=== PATIENT | male | born 1960 | race Caucasian/White ===

== ENCOUNTER → 2016-09-19 | Outpatient (CLI) | payer BC ==
--- NOTE | 2016-09-19 11:26 | MR ---
EXAMINATION TYPE: MR knee RT wo con DATE OF EXAM: 09/19/2016 COMPARISON: Plain film 09/07/2016 HISTORY: Rt knee pain TECHNIQUE: Multiplanar, multisequence imaging of the right knee is performed without IV contrast. FINDINGS: MEDIAL MENISCUS: Posterior horn of the medial meniscus shows abnormal increased signal which extends to the articular surface. LATERAL MENISCUS: Linear increased signal running through the meniscus does not communicate with the articular surface. CRUCIATE LIGAMENTS: The anterior and posterior cruciate ligaments are intact and unremarkable. COLLATERAL LIGAMENTS: The medial collateral ligament and lateral collateral ligament complex are inta ct and unremarkable. EXTENSOR MECHANISM: The patellar tendon shows some increased signal at its insertion on the proximal tibia, there is susceptibility artifact due to patient's rena at this level. Quadriceps tendon int act. EFFUSION: Small joint effusion, there may be some loose bodies. POPLITEAL CYST: No popliteal/flores cyst. TRICOMPARTMENT SPACES: Some narrowing at the patellofemoral joint is present. There is associated mar ginal spurring especially at the posterior patella and lateral compartments CARTILAGE: Grade IV chondromalacia changes are present at the posterior patella, grade 2 to grade III chondromalacia signal present at the medial femoral condyle. BONE MARROW SIGNAL: Subchondral edema at the posterior patella OTHER: Cluster of grapes cystic focus present at level between the proximal tibia and fibula measuri ng 3 x 2 x 1 cm. Incidental note of varicosities. IMPRESSION: Tear of the posterior horn medial meniscus. Osteoarthritis. Postop changes. Possible ganglion cyst be tween the proximal tibia and fibula. Small loose bodies suspected within a small joint effusion.
== END | disposition home or self-care (01) ==
LOC: RADMRIMAIN 08:33
PROVIDERS: ATTEND Orthopaedic Surgery
DX: S83.241A Other tear of medial meniscus, current injury, right knee, initial encounter (principal); M17.11 Unilateral primary osteoarthritis, right knee; Z98.890 Other specified postprocedural states

== ENCOUNTER → 2016-09-29 | Outpatient (CLI) | payer BC ==
[2016-09-29 11:31] LABS: EKG EKG PERFORMED
[2016-09-29 11:49] LABS: Basophils % (A) 0 %; CH 32.9; CHCM 34.3; Eosinophils # (A) 0.3 k/uL (0-0.7); Eosinophils % (A) 4 %; HCT 43.9 % (39.0-53.0); HGB 15.1 gm/dL (13.0-17.5); Luc # (Auto) 0.22; Luc % (Auto) 3; Lymphocytes # (A) 1.7 k/uL (1.0-4.8); Lymphocytes % (A) 22 %; MCH 33.1 pg (25.0-35.0); MCHC 34.5 g/dL (31.0-37.0); Mean Platelet Volume 6.7; Monocytes # (A) 0.3 k/uL (0-1.0); Monocytes % (A) 4 %; Neutrophils # (A) 5.2 k/uL (1.3-7.7); Neutrophils % (A) 67 %; RBC 4.57 m/uL (4.30-5.90); RDW 13.8 % (11.5-15.5); WBC 7.7 k/uL (3.8-10.6); WBC (Perox) 7.44
[2016-09-29 11:54] LABS: Partial Thromboplastin Time 22.5 sec (22.0-30.0); Prothrombin Time 10.5 sec (9.0-12.0)
[2016-09-29 12:13] LABS: Anion Gap 9 mmol/L; Carbon Dioxide 25 mmol/L (22-30); Chloride 106 mmol/L (98-107); Potassium 4.4 mmol/L (3.5-5.1); Sodium 140 mmol/L (137-145)
== END | disposition home or self-care (01) ==
LOC: LABPAT 11:22
PROVIDERS: ATTEND Orthopaedic Surgery
DX: Z01.810 Encounter for preprocedural cardiovascular examination (principal); M23.91 Unspecified internal derangement of right knee
CPT/HCPCS: 36415; 80051; 85025; 85610; 85730; 93005

== ENCOUNTER 2016-10-07 06:30 | Day surgery (SDC) | payer BC ==
[2016-09-29 13:04] VITALS: BMI 36.9
[~2016-10-07 06:30] MED LIST: DEXAMETHASONE SOD PHOSPHATE 10 MG/ML 1 ML VIAL IV ONE; LACTATED RINGERS 1,000 ML IV SCH; MIDAZOLAM 2 MG/2 ML VIAL IV PRN; ONDANSETRON 4 MG/2 ML VIAL IVP ONE; SCOPOLAMINE 1.5MG/72HR PATCH TRANSDERM ONE; ceFAZolin 3 GM in SODIUM CHLORIDE 0.9% 100 ML IVPB ONE
--- NOTE | 2016-10-07 06:37 | HP ---
HISTORY AND PHYSICAL CHIEF COMPLAINT: Right knee pain. HISTORY OF PRESENT ILLNESS: The patient is a 55-year-old retired gentleman who presents with right knee pain and giving way ever since an injury on July 23, 2016. He was trying to move a large flower pot with his right leg when he felt a pop in his knee. He has had medial pain, swelling, and giving way since. He has tried medications along with an injection with only partial temporary relief. He notes the pain limits his normal function in activities. PAST MEDICAL HISTORY: Significant for hypertension. PAST SURGICAL HISTORY: Significant for left knee arthroscopy in addition to previous right knee ACL reconstruction 30 years ago. CURRENT MEDICATIONS: Current medications include antihypertensive and ibuprofen. ALLERGIES: He denies drug allergies. FAMILY HISTORY: Significant for cancer. SOCIAL HISTORY: Negative for current tobacco or alcohol use. REVIEW OF SYSTEMS: Sixteen point review of systems otherwise reviewed and is noncontributory. PHYSICAL EXAMINATION: On examination, the patient is approximately 6 foot tall, 265 pounds of endomorphic habitus. HEENT exam is nonfocal. Neck is supple. He has painless passive motion of his right hip. Straight leg raise is negative. Active motion right knee -10 to 115 degrees of flexion. He is tender about the medial joint line. Collaterals are stable, Suly's negative, Srini's elicits medial pain. His distal neurovascular exam appears intact in the right lower extremity. X-RAYS: X-rays of the right knee obtained in the office show moderate tricompartmental osteoarthrosis. Previous MRI report right knee shows evidence of a posterior medial meniscal tear in addition to degenerative changes involving the medial and patellofemoral compartments. IMPRESSION: 1. Right knee internal derangement with symptomatic medial meniscal tear. 2. Right knee moderate tricompartmental osteoarthrosis. 3. Increased body mass index. RECOMMENDATIONS: I talked to the patient regarding his treatment options. At this point, he has had pain and mechanical symptoms despite conservative measures. He opts to proceed with surgery. We will plan to proceed with arthroscopic evaluation with probable partial medial meniscectomy. Likely we will perform that as an outpatient procedure. Risks and benefits were discussed at length in layman's terms. MMODL / IJN: [id number] /
[2016-10-07] MEDS ORDERED: LIDOCAINE 1% 20 ML VIAL (10MG/ML) FOR IV START INTRADERMA ONE (07:10)
[2016-10-07] MEDS ORDERED: MIDAZOLAM 2 MG/2 ML VIAL ONE (07:53)
[2016-10-07] MEDS ORDERED: PROPOFOL 10 MG/ML 20 ML VIAL IV ONE (07:53)
[2016-10-07] MEDS ORDERED: fentaNYL (PF) 50 MCG/ML 2 ML AMP ONE (07:53)
[2016-10-07] MEDS ORDERED: ePHEDrine SULFATE/0.9% NACL/PF 50 MG/5 ML SYRINGE IV ONE (07:53)
[2016-10-07] MEDS ORDERED: SUCCINYLCHOLINE CHLORIDE VIAL 200 MG/10 ML VIAL IV ONE (07:53)
[2016-10-07] MEDS ORDERED: LIDOCAINE 1% INJ 10MG/ML (20 ML MDV) ONE (07:53)
[2016-10-07] MEDS ORDERED: EPINEPHrine (PF) 1 ML in SODIUM CHLORIDE 0.9% IRRIGATIO 3,000 ML IRRIGATION ONE ×4 (08:11)
--- NOTE | 2016-10-07 08:42 | P.OP ---
Date of Procedure: 10/07/16 Preoperative Diagnosis: Right knee internal derangement Postoperative Diagnosis: Right knee posterior medial meniscal tear/grade 2/3 chondral injury posterior lateral medial femoral condyle/grade 2 chondral injury central lateral tibial plateau/reactive synovitis Procedure(s) Performed: Right knee arthroscopic partial medial meniscectomy/medial femoral chondrectomy/ lateral tibial chondrectomy/partial synovectomy of the medial and lateral compartments Implants: Anesthesia: GETA Surgeon: Law Enriquez Estimated Blood Loss (ml): 10 Pathology: none sent Condition: stable Disposition: PACU Indications for Procedure: The patient's a 55-year-old male who presents with progressive right knee pain and mechanical symptoms after a previous twisting injury. He did try conservative measures with persistence of his symptoms. A discussion of the risks and benefits of operative intervention versus continued conservative measures was made with the patient. He opted to proceed with surgery. Operative risks to include infection, neurovascular injury, development of blood clots, possible incomplete resolution of symptoms, possible worsening symptoms and need for subsequent procedures was discussed. Informed consent was obtained. Operative Findings: As below Description of Procedure: The patient was brought to the operating room, and after induction of general anesthesia examined the right knee. Collaterals were stable, Suly was negative, posterior drawer was negative. The right lower extremity was prepped and draped in a normal fashion. A superior lateral portal was made through a 3 mm skin incision superior and lateral to the patella. This was used for outflow. A lateral portal was made through a 5 mm vertical skin incision lateral to the patella tendon above the joint line. Diagnostic arthroscopy was performed. A medial portal was made through a similar incision medial to the patella tendon above the joint line. Diagnostic arthroscopy was performed. On inspection medial compartment, he is noted of complex tear involving the posterior horn the medial meniscus in the white-red junction. This was not amenable to repair. This debrided back to stable base with straight baskets and motorized shaver. A grade 2/3 chondral injury was noted involving the posterior/lateral portion of the medial femoral condyle. This measured approximately 1 x 2 cm with a large chondral flap. This was debrided back to stable base the motorized shaver. Reactive synovitis from anterior medial compartment was debrided with a motorized shaver. On inspection of the notch, the anterior cruciate ligament appeared to be intact. On inspection of the lateral compartment, a grade 2 chondral injury was noted involving the central portion of the lateral tibial plateau with a loose chondral flap. This debrided back to stable base a motorized shaver. The lateral meniscus was stable and intact. Reactive synovitis involving the anterolateral compartment was debrided with a motorized shaver. On inspection patellofemoral articulation , there is grade 3-4 chondral changes diffusely. No loose chondral fragments were noted. The gutters were clear debris. The knee was then thoroughly irrigated. The portals were closed with Steri-Strips. A sterile dressing was applied in addition to a compression stocking. The patient was awoken from general anesthesia and transferred to recovery room in good condition. Blood loss was estimated at 10 mL. No complications were incurred.
[2016-10-07 08:56] VITALS: TEMP 97.4
[2016-10-07 09:02] VITALS: RESP 16
[2016-10-07] MEDS: HYDROmorphone 1 MG/ML 1 ML SYRINGE IVP PRN ×2 (09:06→09:12)
[2016-10-07] MEDS ORDERED: HYDROcodone/APAP 7.5-325MG 1 EACH TAB PO ONE (09:52)
[2016-10-07 10:07] VITALS: BP 115/70; PULSE 80
== END 2016-10-07 10:24 | disposition home or self-care (01) ==
LOC: OR 06:30
PROVIDERS: ATTEND Orthopaedic Surgery
DX: S83.241A Other tear of medial meniscus, current injury, right knee, initial encounter (principal); M23.91 Unspecified internal derangement of right knee; X58.XXXA Exposure to other specified factors, initial encounter; Y93.H2 Activity, gardening and landscaping; M17.11 Unilateral primary osteoarthritis, right knee; I10 Essential (primary) hypertension; M06.9 Rheumatoid arthritis, unspecified; Z79.1 Long term (current) use of non-steroidal anti-inflammatories (NSAID); Z79.899 Other long term (current) drug therapy; M65.861 Other synovitis and tenosynovitis, right lower leg; Z91.012 Allergy to eggs; Z91.010 Allergy to peanuts; Z91.013 Allergy to seafood; Z88.2 Allergy status to sulfonamides; Z91.09 Other allergy status, other than to drugs and biological substances
CPT/HCPCS: 29881; J2250; J0330; J1100; J0690; J2405; J0171; J2001; J3010; J1170; J2704

== ENCOUNTER → 2019-11-14 | Outpatient (CLI) | payer BC ==
--- NOTE | 2019-11-15 06:32 | US ---
EXAMINATION TYPE: US kidneys/renal and bladder DATE OF EXAM: 11/14/2019 COMPARISON: CT 2008 CLINICAL HISTORY: N41.0 Acute prostatitis. No renal/bladder history issues per patient. EXAM MEASUREMENTS: Right Kidney: 11.9 x 6.2 x 5.1 cm Left Kidney: 12.7 x 6.1 x 6.2 cm Post Void Residual Volume: 108.2 mL Right Kidney: No hydronephrosis or masses seen; small,thin extracapsular fluid area mid pole is sonog raphic "sweat sign"and is suggestive of renal failure. Left Kidney: No hydronephrosis or masses seen Bladder: abnormally thickened wall is noted = 6.7mm. Bilateral Jets seen: yes Normal Post Void Residual: no, as volume is greater than 50.0ml. Bladder is not greatly distended with wall thickening slightly abnormal up to 7 mm. No suspicious int raluminal mass. Kidneys are symmetric and normal in size. When scanning right kidney adjacent liver i s heterogeneously hyperechoic suggesting diffuse fatty infiltration. Cortical medullary differentiati on maintained. No concerning masses on images saved. No hydronephrosis. IMPRESSION: Abnormal bladder wall thickening even for contracted bladder should be correlated clinica lly. Acute cystitis is in differential along with chronic outlet obstruction related to enlarged pros ventura gland. Other etiologies not excluded.
== END | disposition home or self-care (01) ==
LOC: RADUSWWP 16:14
PROVIDERS: ATTEND Urology
DX: N32.89 Other specified disorders of bladder (principal); N40.0 Benign prostatic hyperplasia without lower urinary tract symptoms
CPT/HCPCS: 76770

== ENCOUNTER → 2021-04-27 | Outpatient (CLI) | payer BC ==
--- NOTE | 2021-04-27 11:55 | US ---
EXAMINATION TYPE: US scrotum with doppler. Grayscale and color Doppler Duplex imaging performed of judith molina scrotum. DATE OF EXAM: 04/27/2021 COMPARISON: NONE CLINICAL HISTORY: N50.819 TESTICULAR PAIN, UNSPECIFIED. Right testicular pain and swelling x couple d ays EXAM MEASUREMENTS: TESTICLES: Right Testicle: 4.2 x 3.2 x 3.6 cm Left Testicle: 4.3 x 2.4 x 3.1 cm EPIDIDYMIS HEAD: Right Epididymis: 1.5 cm Left Epididymis: 1.5 cm Doppler performed to assess for testicular vascularity; good bilateral color flow and waveforms are s een. Presence of hydroceles: right - 4.8cm complex, left - 2.6cm Presence of varicoceles: no Small to moderate size right greater than left scrotal fluid collection or hydroceles which is not co mpletely anechoic on the right. Satisfactory blood flow to both testicles identified. Towards end of study image saved appears to show asymmetric slight increased flow to the right testicle. Technologis t does not state if this was also identified during real-time scanning. IMPRESSION: Asymmetric increased blood flow flow to right testicle with nonsimple scrotal fluid colle ction raises concern for right-sided orchitis/epididymitis.
== END | disposition home or self-care (01) ==
LOC: RADUSWWP 11:16
PROVIDERS: ATTEND Internal Medicine Geriatric Medicine
DX: N45.1 Epididymitis (principal); N45.2 Orchitis
CPT/HCPCS: 76870; 93975

== ENCOUNTER 2022-07-29 08:42 | Emergency (ER) | payer BC ==
[2022-07-29 08:50] VITALS: RESP 16
[2022-07-29] MEDS ORDERED: HYDROmorphone 0.5 MG/0.5 ML SYRINGE IM STA (09:20)
--- NOTE | 2022-07-29 09:20 | ED ---
General Adult HPI - General Chief complaint: Urogenital Stated complaint: POST OP, PAIN Time Seen by Provider: 07/29/22 08:43 Source: patient Mode of arrival: ambulatory Limitations: no limitations - History of Present Illness Initial comments: Dictation was produced using [employer] dictation software. please excuse any grammatical, word or spelling errors. Chief Complaint: 61-year-old male with penile pain status post cystoscopy History of Present Illness: Patient is 61-year-old male presents emergency Department with penile pain. States that he had a cystoscopy yesterday at Dr. Cooper's office. Dr. Cooper his urologist Diagnosed patient with an fistula between bowel and bladder. Patient has been struggling with frequent UTIs over the last 2 years. Patient currently on antibiotics. States that the procedure he has been having significant pain. We'll go this morning his penis was severely swollen. He called the answering service is told to the ER immediately. Patient states that the swelling has gone down immensely over the last couple hours. Using ice packs. Patient has history of circumcision The ROS documented in this emergency department record has been reviewed and confirmed by me. Those systems with pertinent positive or negative responses have been documented in the HPI. All other systems are other negative and/or noncontributory. - Related Data Home Medications Medication Instructions Recorded Confirmed ramipriL [Altace] 10 mg PO BID 06/13/13 07/18/20 Ixekizumab [Taltz Autoinjector] 80 mg SQ QMONTHLY 07/09/20 07/18/20 Previous Rx's Medication Instructions Recorded Cefpodoxime Proxetil [Vantin] 200 mg PO Q12HR 10 Days #20 tab 07/29/22 oxyCODONE HCL/ACETAMINOPHEN 1 tab PO Q6HR PRN 3 Days #12 tab 07/29/22 [Percocet 5-325 mg] Allergies Allergy/AdvReac Type Severity Reaction Status Date / Time egg Allergy Dyspnea Verified 07/29/22 08:45 iodine Allergy Dyspnea Verified 07/29/22 08:45 Milk Containing Products Allergy Dyspnea Verified 07/29/22 08:45 peanut Allergy Dyspnea Verified 07/29/22 08:45 shellfish derived Allergy Dyspnea Verified 07/29/22 08:45 Sulfa (Sulfonamide Allergy Unknown Verified 07/29/22 08:45 Antibiotics) Review of Systems ROS Statement: Those systems with pertinent positive or pertinent negative responses have been documented in the HPI. ROS Other: All systems not noted in ROS Statement are negative. Past Medical History Past Medical History: Hypertension, Musculoskeletal Disorder Additional Past Medical History / Comment(s): arthritis, warthins tumors parotid gland. PROSTATITIS. History of Any Multi-Drug Resistant Organisms: None Reported Past Surgical History: Bowel Resection, Hernia Repair, Orthopedic Surgery Additional Past Surgical History / Comment(s): arthroscopy evan knees, parotide ctomy, bowel resection, multiple cystoscopies Past Anesthesia/Blood Transfusion Reactions: No Reported Reaction Past Psychological History: No Psychological Hx Reported Smoking Status: Never smoker Past Alcohol Use History: None Reported Past Drug Use History: None Reported General Exam - General Exam Comments Initial Comments: PHYSICAL EXAM: General Impression: Alert and oriented x3, not in acute distress HEENT: Normocephalic atraumatic, extra-ocular movements intact, pupils equal and reactive to light bilaterally, mucous membranes moist. Cardiovascular: Heart regular rate and rhythm Chest: Able to complete full sentences, no retractions, no tachypnea Abdomen: abdomen soft, non-tender, non-distended, no organomegaly Musculoskeletal: Pulses present and equal in all extremities, no peripheral edema Motor: no focal deficits noted Neurological: CN II-XII grossly intact, no focal motor or sensory deficits noted Skin: Intact with no visualized rashes Psych: Normal affect and mood : Mild swelling to the inferior portion of the foreskin, no evidence of paraphimosis, glans penis is unremarkable Limitations: no limitations Course Vital Signs 07/29/22 07/29/22 07/29/22 08:45 09:26 10:24 Temperature 98 F 97.9 F 97.9 F Pulse Rate 97 70 69 Respiratory 16 16 16 Rate Blood Pressure 158/91 128/94 134/83 O2 Sat by Pulse 97 95 99 Oximetry - Reevaluation(s) Reevaluation #1: 07/29/22 09:[address] Vincent Cooper who is patient's urologist at performed cystoscopy yesterday. He denies any further recommendation. He is aware that patient shared emergency department experiencing complications status post cystoscopy. Medical Decision Making - Medical Decision Making Was pt. sent in by a medical professional or institution (, PA, BOARD TURNER, urgent care, hospital, or detention...) When possible be specific @ -No Did you speak to anyone other than the patient for history (EMS, parent, family, police, friend...)? What history was obtained from this source @ - at the bedside states the patient is UTI Did you review nursing and triage notes (agree or disagree)? Why? @ -I reviewed and agree with nursing and triage notes Were old charts reviewed (outside hosp., previous admission, EMS record, old EKG, old radiological studies, urgent care reports/EKG's, detention records)? Report findings @ -No old charts were reviewed Differential Diagnosis (chest pain, altered mental status, abdominal pain women, abdominal pain men, vaginal bleeding, musculoskeletal, weakness, fever, dyspnea, syncope, headache, dizziness, GI bleed, back pain, seizure, CVA, palpatations, mental health)? @ -Differential Abdominal Pain Men: Appendicitis, cholecystitis, diverticulosis, ischemic bowel, pancreatitis, hepatitis, UTI, gastroenteritis, AAA, incarcerated hernia, bowel obstruction, constipation, inflammatory bowel, hepatitis, peptic ulcer disease, splenic infarction, perforated viscus, testicular torsion, this is not meant to be an all-inclusive list EKG interpreted by me (3pts min.). @ -None done X-rays interpreted by me (1pt min.). @ -None done CT interpreted by me (1pt min.). @ -None done U/S interpreted by me (1pt. min.). @ -None done What testing was considered but not performed or refused? (CT, X-rays, U/S, labs)? Why? @ -None What meds were considered but not given or refused? Why? @ -None Did you discuss the management of the patient with other professionals (professionals i.e. , PA, BOARD TURNER, lab, RT, psych nurse, social media marketing specialist, instructional materials director, teacher, consumer safety officer, disease case manager)? Give summary @ -discussed with Dr. Vincent Cooper as described above Was smoking cessation discussed for >3mins.? @ -No Was critical care preformed (if so, how long)? @ -No Were there social determinants of health that impacted care today? How? (Homelessness, low income, unemployed, alcoholism, drug addiction, transportation, low edu. Level, literacy, decrease access to med. care, long term, rehab)? @ -No Was there de-escalation of care discussed even if they declined (Discuss DNR or withdrawal of care, Hospice)? DNR status @ -No What co-morbidities impacted this encounter? (DM, HTN, Smoking, COPD, CAD, Cancer, CVA, ARF, Chemo, Hep., AIDS, mental health diagnosis, sleep apnea, morbid obesity)? @ -None Was patient admitted / discharged? Hospital course, mention meds given and route, prescriptions, significant lab abnormalities, going to OR and other pertinent info. @ -61-year-old male presents emergency department with urinary symptoms. Cystoscopy done yesterday. Vital signs upon arrival are within acceptable limits. Does not have any constitutional symptoms. He was just diagnosed with bowel bladder fistula. Urinalysis shows findings consistent with urinary tract infection. Most recent microbiology results reviewed from 2020. Patient given ceftriaxone. Given prescription for cefpodoxime and analgesics. Rest of Undiagnosed new problem with uncertain prognosis? @ -No Drug Therapy requiring intensive monitoring for toxicity (Heparin, Nitro, Insulin, Cardizem)? @ -No Were any procedures done? @ -No Diagnosis/symptom? Acute, or Chronic, or Acute on Chronic? Uncomplicated (without systemic symptoms) or Complicated (systemic symptoms)? @ -UTI Side effects of treatment? @ -No Exacerbation, Progression, or Severe Exacerbation? @ -No Poses a threat to life or bodily function? How? (Chest pain, [place], [place], pneumonia, PE, COPD, DKA, ARF, appy, cholecystitis, CVA, Diverticulitis, Homicidal, Suicidal, threat to staff... and all critical care pts) @ -yes - Lab Data Lab Results 07/29/22 Range/Units 09:17 Urine Color Dark Brown Urine Appearance Cloudy (Clear) Urine pH 6.0 (5.0-8.0) Ur Specific Nahma 1.020 (1.001-1.035) Urine Protein 2+ H (Negative) Urine Glucose (UA) Negative (Negative) Urine Ketones Trace H (Negative) Urine Blood Large H (Negative) Urine Nitrite Positive (Negative) Urine Bilirubin Negative (Negative) Urine Urobilinogen <2.0 (<2.0) mg/dL Ur Leukocyte Esterase Large H (Negative) Urine RBC >182 H (0-5) /hpf Urine WBC >182 H (0-5) /hpf Urine WBC Clumps Many H (None) /hpf Urine Mucus Rare H (None) /hpf Urine Yeast (Budding) Few H (None) /hpf Disposition Clinical Impression: UTI (urinary tract infection) Disposition: HOME SELF-CARE Condition: Fair Instructions (If sedation given, give patient instructions): Urinary Tract Infection in Men (ED) Prescriptions: oxyCODONE HCL/ACETAMINOPHEN [Percocet 5-325 mg] 1 tab PO Q6HR PRN 3 Days #12 tab PRN Reason: Pain Cefpodoxime Proxetil [Vantin] 200 mg PO Q12HR 10 Days #20 tab Is patient prescribed a controlled substance at d/c from ED?: Yes If prescribed controlled substance>3 days was MAPS reviewed?: Prescribed <3 Days Referrals: Denisse West MD [Primary Care Provider] - 1-2 days Time of Disposition: 11:48
[2022-07-29 09:41] LABS: Appearance,Urine Cloudy (Clear); Bilirubin,Urine Negative (Negative); Blood,Urine Large (Negative); Budding Yeast,Urine Few /hpf; Color,Urine Dark Brown; Glucose,Urine (UA) Negative (Negative); Ketones,Urine Trace (Negative); Leukocyte Esterase,Urine Large (Negative); Mucus,Urine Rare /hpf; Nitrite,Urine Positive (Negative); Protein,Urine 2+ (Negative); RBC,Urine >182 /hpf (0-5); Urobilinogen,Urine <2.0 mg/dL (<2.0); WBC,Urine >182 /hpf (0-5)
[2022-07-29] MEDS ORDERED: cefTRIAXone IN SWFI 1,000 MG/10 ML SYRINGE IVP STA (10:40)
[2022-07-29 11:57] VITALS: BP 138/80; PULSE 72; TEMP 97.6
== END 2022-07-29 11:57 | disposition home or self-care (01) ==
LOC: EC 08:42
DX: N39.0 Urinary tract infection, site not specified (principal); I10 Essential (primary) hypertension; Z88.1 Allergy status to other antibiotic agents; Z88.2 Allergy status to sulfonamides; Z91.012 Allergy to eggs; Z91.013 Allergy to seafood; Z91.011 Allergy to milk products
CPT/HCPCS: 81001; 87086; 99283; 96374; 96372; J0696; J1170

== ENCOUNTER → 2024-02-20 | Outpatient (CLI) | payer BC ==
--- NOTE | 2024-02-20 09:01 | XR ---
EXAMINATION TYPE: XR chest 2V DATE OF EXAM: 02/20/2024 8:57 AM COMPARISON: None. CLINICAL INDICATION: Male, 63 years old with history of Z01.818 CH XR 2 V PRE SURG, TECHNIQUE: XR chest 2V view(s) obtained. FINDINGS: The heart size is normal. The pulmonary vasculature is normal. The lungs are clear. IMPRESSION: 1. No acute pulmonary process. [facility], , 02/20/2024 8:59 AM
[2024-02-20 15:31] LABS: HCT 38.4 % (39.6-50.0); HGB 12.5 g/dL (13.0-17.0); MCH 29.8 pg (27.0-32.0); MCHC 32.6 g/dL (32.0-37.0); MCV 91.6 FL (80.0-97.0); Mean Platelet Volume 9.6 FL (9.5-12.2); NRBC Per 100 WBC 0 X 10*3/uL (0.00-0.01); Platelet Count 154 X 10*3/uL (140-440); RBC 4.19 X 10*6/uL (4.40-5.60); RDW 13.2 % (11.5-14.5); WBC 6.04 X 10*3/uL (4.50-10.00)
[2024-02-20 15:32] LABS: Basophils # (A) 0.03 X 10*3/uL (0.00-0.10); Basophils % (A) 0.5 %; Eosinophils # (A) 0.24 X 10*3/uL (0.04-0.35); Lymphocytes # (A) 1.09 X 10*3/uL (0.90-5.00); Monocytes # (A) 0.42 X 10*3/uL (0.20-1.00); Neutrophils # (A) 4.24 X 10*3/uL (1.80-7.70); Neutrophils % (A) 70.2 %
[2024-02-20 18:55] LABS: Appearance,Urine Clear (Clear); Bilirubin,Urine Negative (Negative); Blood,Urine Negative (Negative); Color,Urine Yellow (Yellow); Ketones,Urine Negative (Negative); Nitrite,Urine Negative (Negative); PH, Urine 5.5; Specific Gravity,Urine 1.027 (1.001-1.030); Urobilinogen,Urine 0.2 E.U./DL
[2024-02-20 19:12] LABS: Bacteria,Urine None Seen (None Seen)
[2024-02-20 21:40] LABS: NT-Pro-B-Type Natriuretic Pept 276 pg/mL (0-125)
[2024-02-20 21:48] LABS: ALT 21 U/L (10-49); AST 19 U/L (14-35); Albumin 4.2 g/dL (3.8-4.9); Alkaline Phosphatase 50 U/L (41-126); BUN/Creat Ratio 18.82 Ratio (12.00-20.00); Blood Urea Nitrogen 20.7 mg/dL (9.0-27.0); Calcium 9.1 mg/dL (8.7-10.3); Carbon Dioxide 22.8 mmol/L (21.6-31.8); Chloride 106 mmol/L (96-109); Chol/HDL Ratio 3.23 Ratio; Globulin 2.8 g/dL (1.6-3.3); Glucose 195 mg/dL (70-110); LDL Cholesterol,Calculated 68.8 mg/dL (0.0-131.0); Potassium 4.3 mmol/L (3.5-5.5); Sodium 141 mmol/L (135-145); Total Bilirubin 0.3 mg/dL (0.3-1.2)
== END | disposition home or self-care (01) ==
LOC: LABPAT 08:12
PROVIDERS: ATTEND Family Medicine
DX: Z01.818 Encounter for other preprocedural examination (principal); E11.65 Type 2 diabetes mellitus with hyperglycemia; R80.9 Proteinuria, unspecified; I10 Essential (primary) hypertension; M06.9 Rheumatoid arthritis, unspecified; M16.2 Bilateral osteoarthritis resulting from hip dysplasia
CPT/HCPCS: 71046; 80053; 80061; 81001; 82043; 82570; 83036; 83880; 84443; 84550; 85025; 87070; 87086

== ENCOUNTER → 2024-03-02 | Outpatient (CLI) | payer BC ==
[2024-03-02 13:52] LABS: Prothrombin Time 11.4 sec (9.9-11.9)
== END | disposition home or self-care (01) ==
LOC: LABWHC1 07:56
PROVIDERS: ATTEND Orthopaedic Surgery
DX: Z01.812 Encounter for preprocedural laboratory examination (principal); M16.12 Unilateral primary osteoarthritis, left hip
CPT/HCPCS: 36415; 85610; 86850; 86900; 86901

== ENCOUNTER 2024-03-05 05:54 | Day surgery (SDC) | payer BC ==
--- NOTE | 2024-03-04 08:06 | P.HPOR ---
History of Present Illness H&P Date: 03/04/24 Chief Complaint: Left hip pain The patient is a 63-year-old male who presents with progressive left hip pain for the past year worsening over the past 3 months. He notes anterior groin and thigh pain with weightbearing activities. He is having night symptoms. He notes he has been limping. He has tried medications without much relief. Review of Systems Per HPI Past Medical History Past Medical History: Diabetes Mellitus, Hyperlipidemia, Hypertension, Musculoskeletal Disorder, Skin Disorder Additional Past Medical History / Comment(s): psoriatic arthritis, warthins tumors parotid gland, psoriasis, past hx. sepsis due to fistula 2022 History of Any Multi-Drug Resistant Organisms: None Reported Past Surgical History: Bowel Resection, Hernia Repair, Orthopedic Surgery Additional Past Surgical History / Comment(s): arthroscopy evan knees, parotidectomy, bowel resection due to obstruction, multiple cystoscopies, surgery to repair fistula from prostate to bladder 2022 Past Anesthesia/Blood Transfusion Reactions: Postoperative Nausea & Vomiting (PONV) Additional Past Anesthesia/Blood Transfusion Reaction / Comment(s): no hx. of transfusion reaction Smoking Status: Never smoker - Past Family History Mother Family Medical History: No Reported History Medications and Allergies Home Medications Medication Instructions Recorded Confirmed Type Cholecalciferol [Vitamin D3 (25 25 mcg PO DAILY 03/01/24 03/01/24 History Mcg = 1000 Iu)] Finasteride [Proscar] 5 mg PO DAILY 03/01/24 03/01/24 History HYDROcodone/APAP 5-325MG [[place] 1 tab PO Q6HR PRN 03/01/24 03/01/24 History 5-325] Metoprolol Tartrate [Lopressor] 100 mg PO BID 03/01/24 03/01/24 History Rosuvastatin Calcium [Crestor] 5 mg PO DAILY 03/01/24 03/01/24 History Terazosin HCl [Hytrin] 10 mg PO HS 03/01/24 03/01/24 History Tofacitinib Citrate [Xeljanz Xr] 11 mg PO DAILY 03/01/24 03/01/24 History Vitamin B-Folic Acid 1 tab PO DAILY 03/01/24 History lisinopriL [Zestril] 20 mg PO BID 03/01/24 03/01/24 History metFORMIN HCL [Glucophage] 850 mg PO BID 03/01/24 03/01/24 History Allergies Allergy/AdvReac Type Severity Reaction Status Date / Time egg Allergy Dyspnea Verified 03/01/24 11:17 Milk Containing Products Allergy Dyspnea Verified 03/01/24 11:17 (Dairy) [Milk Containing Products] peanut Allergy Dyspnea Verified 03/01/24 11:17 shellfish derived Allergy Dyspnea Verified 03/01/24 11:17 Sulfa (Sulfonamide Allergy Unknown Verified 03/01/24 11:17 Antibiotics) Physical Examination - Hip left Gait: antalgic Tenderness with palpation: anterior Pain with motion: internal rotation and hip flexion ROM: flexion: 60 degrees ROM: internal rotation: 0 degrees ROM: external rotation: 50 degrees Crepitus with motion: Yes Strength: extension: 5/5 Strength: flexion: 5/5 Strength: abduction: 5/5 Tests: impingement tests: positive Results The patient is a well-developed well-nourished male approximately 6 foot tall, 260 pounds of endomorphic habitus. HEENT exam is nonfocal, neck is supple. He has painful passive motion of the left hip. Clinically he has shortening of the left lower extremity compared to the right. He has an antalgic gait pattern. His distal neurovascular exam appears intact in the left lower extremity. - Diagnostic results Hip x-ray: image reviewed (X-rays of the left hip obtained the office show severe left hip osteoarthrosis with [id number] changes and subchondral sclerosis.) Assessment and Plan Assessment: Left hip severe osteoarthrosis Plan: I talked to the patient at length regarding his condition along with treatment options. At this point he is quite symptomatic having pain and mechanical symptoms related to his left hip osteoarthrosis despite conservative measures. After a thorough discussion he opts to proceed with surgery. We will plan to proceed with a left total hip arthroplasty utilizing an anterior approach. Risks and benefits were discussed at length in layman's terms. We will institute DVT prophylaxis postoperatively.
[~2024-03-05 05:54] MED LIST changes: -DEXAMETHASONE SOD PHOSPHATE 10 MG/ML 1 ML VIAL IV ONE; -LACTATED RINGERS 1,000 ML IV SCH; -MIDAZOLAM 2 MG/2 ML VIAL IV PRN; -ONDANSETRON 4 MG/2 ML VIAL IVP ONE; -SCOPOLAMINE 1.5MG/72HR PATCH TRANSDERM ONE; +TRANEXAMIC 1,000 MG/100ML-NACL 1,000 MG in SALINE 1 100ML.BAG IVPB PRN; -ceFAZolin 3 GM in SODIUM CHLORIDE 0.9% 100 ML IVPB ONE
[2024-03-05] MEDS: IV FLUID CONTINUATION 1,000 ML IV ONE (06:45)
[2024-03-05 06:48] LABS: Glucose,Whole Blood 159 mg/dL (70-110)
[2024-03-05] MEDS: MELOXICAM 7.5 MG TAB PO PRN (06:49)
[2024-03-05] MEDS: ACETAMINOPHEN TAB 500 MG TAB PO PRN (06:49)
[2024-03-05] MEDS: LACTATED RINGERS 1,000 ML IV SCH (06:49)
[2024-03-05] MEDS: DEXAMETHASONE SOD PHOSPHATE 4 MG/ML 1 ML VIAL IV ONE (06:50)
[2024-03-05] MEDS: ONDANSETRON 4 MG/2 ML VIAL IVP ONE (06:50)
[2024-03-05] MEDS: MIDAZOLAM 2 MG/2 ML VIAL IVP ONE (07:13)
[2024-03-05] MEDS ORDERED: MIDAZOLAM 2 MG/2 ML VIAL ONE (07:29)
[2024-03-05] MEDS ORDERED: PHENYLEPHRINE 10 MG/ML VIAL ONE (07:29)
[2024-03-05] MEDS ORDERED: PROPOFOL 10 MG/ML 20 ML VIAL IV ONE (07:29)
[2024-03-05] MEDS ORDERED: ePHEDrine 50 MG/ML 1 ML VIAL ONE (07:29)
[2024-03-05] MEDS ORDERED: DEXAMETHASONE SOD PHOSPHATE 4 MG/ML 1 ML VIAL ONE (07:29)
[2024-03-05] MEDS ORDERED: LIDOCAINE 1% INJ 10MG/ML (20 ML MDV) ONE (07:29)
[2024-03-05] MEDS ORDERED: KETAMINE HCL IN 0.9 % NACL 50 MG/5 ML SYRINGE ONE (07:29)
[2024-03-05] MEDS ORDERED: ALBUMIN HUMAN 5% (25gm) 500 ML VIAL IVPB ONE (07:29)
[2024-03-05] MEDS ORDERED: TRANEXAMIC 1,000 MG/100ML-NACL PREMIX BAG ONE (07:29)
[2024-03-05] MEDS ORDERED: ROPIVACAINE 5 MG/ML 30 ML VIAL ONE (07:29)
[2024-03-05] MEDS: ceFAZolin 1,000 MG in SODIUM CHLORIDE 0.9% 1,000 ML IRRIGATION ONE (08:11)
[2024-03-05] MEDS: LACTATED RINGERS 1,000 ML IV ONE (09:12)
[2024-03-05] MEDS ORDERED: hydrOXYzine pamoate 25 MG CAP PO PRN (09:21)
[2024-03-05] MEDS ORDERED: HYDROmorphone 0.5 MG/0.5 ML SYRINGE IVP PRN (09:21)
[2024-03-05] MEDS ORDERED: MAGNESIUM HYDROXIDE 2,400 MG/30 ML CUP PO PRN (09:21)
[2024-03-05] MEDS ORDERED: HYDROcodone/APAP 5-325MG 1 EACH TAB PO PRN (09:21)
[2024-03-05] MEDS ORDERED: NALOXONE 0.4 MG/ML 1 ML VIAL IV PRN (09:21)
--- NOTE | 2024-03-05 09:25 | FL ---
EXAMINATION TYPE: FL guidance operating room, XR Hip Limited LT DATE OF EXAM: 03/05/2024 FLUOROSCOPY LT anterior hip with Mina 27.5 sec fluoro time 1.6721 DAP 4 images saved [facility], , 03/05/2024 9:23 AM
--- NOTE | 2024-03-05 09:37 | P.OP ---
Date of Procedure: 03/05/24 Preoperative Diagnosis: Left hip severe osteoarthrosis Postoperative Diagnosis: Same Procedure(s) Performed: Left total hip arthroplastypress-fitanterior approach Implants: DePuy [place] size 12/125 degree standard collared press-fit femoral stem, 36+1.5 cobalt chrome femoral head, 60 mm [place] acetabular shell with neutral polyethylene liner. Anesthesia: spinal Surgeon: Lwa Enriquez Yard Clerk #1: Benjamin May Estimated Blood Loss (ml): 700 Pathology: none sent Condition: stable Disposition: PACU Indications for Procedure: The patient is a 63-year-old male who presents with progressive left hip pain secondary to osteoarthrosis despite conservative measures. A discussion of the risks and benefits of operative intervention versus continued conservative measures was made with the patient. He opted to proceed with surgery. Operative risks include infection, neurovascular injury, development of blood clots, leg length discrepancy, fracture, possible instability, possible component loosening/failure and possible need for subsequent procedures was discussed. Informed consent was obtained. Operative Findings: As below Description of Procedure: The patient was brought to the operating room, and after induction of spinal anesthesia was placed supine on the [place] table. Positioning was checked with fluoroscopy. The left hip was then prepped and draped in a normal fashion. A 12 cm incision was then made starting 2 fingerbreadths distal and 3 finger breaths posterior to the ASIS in line with the proximal femur. The skin was incised sharply. Subcutaneous tissues were divided sharply. Electrocautery was used for hemostasis. The fascia was split in line with skin incision. The interval between the sartorius and tensor fascia shanell was then bluntly d eveloped. The posterior fascia was opened with electrocautery. The lateral circumflex vessels were identified and cauterized prior to sectioning. A retractor was placed along the superior femoral neck as well as the anterior acetabular rim. A wide capsulotomy was performed. The neck cut was then made at a 45 angle to the shaft approximately 1 1/2 cm above the level of the lesser trochanter. The head was extracted. Attention was then paid towards preparing the acetabulum. Anterior and posterior retractors were placed. The remaining capsular labral tissue sharply debrided clearly defining the acetabular margins. I began reaming with a 55 mm reamer taking care to initially medialize then reaming at 45 of abduction and 20 of anteversion. Sequential reaming is performed up to 59 mm. A trial 60 mm acetabular shell was inserted in the same orientation and was fully seated. There was good rim fit and stability. Positioning was checked with fluoroscopy. The final 60 mm acet abular shell was inserted again at 45 of abduction and 20 of anteversion. This was fully seated. There was good rim fit and stability. Again fluoroscopy was used to check the adequacy of placement. A neutral polyethylene liner was gently impacted. Care was taken to avoid any soft tissue interposition. Pulsatile lavage was utilized. Attention was then paid towards preparing the proximal femur. The central region was cleared of soft tissue. A canal finder was used to find the femoral canal. Sequential broaching was performed up to size 12 taking care to lateralize proximally. A calcar mill was used to fashion the medial calcar. There was good rotational stability. A 125 degree standard neck along with a 36 mm +1.5 head was placed. The hip was gently reduced. Fluoroscopy was used to check the adequacy of positioning along with leg lengths. I felt both were good. The hip was gently dislocated. The trial components were removed. The final size 12/ 125 degree collared standard press- fit femoral stem was inserted parallel to the posterior cortex. This was fully seated and there was good rotational stability. A 36 mm +1.5 cobalt chrome femoral head was placed. This was gently impacted. The hip was then gently reduced. Final fluoroscopic view showed adequate placement implant along with restorationist of leg length. Stability was checked with 80 of external rotation and 60 of extension of the right hip. The wound was irrigated with sterile lavage. The fascia was closed with running 0 Vicryl suture. There was minimal drainage therefore a deep drain was not placed. The second dose of IV TXA was given. The subcutaneous tissues were reapproximated interrupted 2-0 Vicryl sutures. The skin was reapproximated with 3-0 subcuticular strata fix suture. Skin tape and adhesive was applied. A sterile dressing was applied. The patient was then awoken from sedation and transferred to recovery room in good condition. Blood loss was estimated at 700 mL. No complications were incurred. Sponge and needle counts were correct at the end of the case. Benjamin HOUSE assisted during the major components is case to include exposure, bone resection , implantation, and closure.
--- NOTE | 2024-03-05 10:06 | XR ---
EXAMINATION TYPE: XR Hip Limited LT DATE OF EXAM: 03/05/2024 COMPARISON: 01/15/2024 CLINICAL INDICATION: Male, 63 years old with history of Status post hip surgery, assess surgical alec burrell; TECHNIQUE: AP view FINDINGS: Postsurgical change of left hip total arthroplasty. Acetabular cup and femoral stem compone nts of the prosthesis are well seated without periprosthetic fracture. Alignment grossly anatomic. So me irregularity along the anterior left iliac crest likely sequela of old trauma, unchanged from the presurgical exam. IMPRESSION: Uncomplicated postoperative appearance left total hip arthroplasty. [facility], Workstation: [facility], 03/05/2024 10:03 AM
[2024-03-05] MEDS: HYDROmorphone 0.5 MG/0.5 ML SYRINGE IVP PRN (10:36)
--- NOTE | 2024-03-05 10:36 | P.ANPRN ---
Procedure Note - Anesthesia - Nerve Block Performed Left Jamin Single Time Out Performed: Yes Date of Procedure: 03/05/24 Procedure Start Time: 07:12 Procedure Stop Time: 07:17 Location of Patient: PreOp Indication: Acute Post-Operative Pain, Requested by Surgeon Sedation Type: Sedate with meaningful contact maintained Preparation: Sterile Prep Position: Supine Needle Types: Pajunk Needle Gauge: 21 Ultrasound used to visualize needle placement: Yes Ultrasound used to observe medication spread: Yes Blood Aspirated: No Pain Paresthesia on Injection Noted: No Resistance on Injection: Normal Image Stored and Saved: Yes Events: Uneventful and Well Tolerated (Ropivacaine 0.5% 20 cc plus dexamethasone 4 mg)
[2024-03-05 11:24] LABS: Glucose,Whole Blood 187 mg/dL (70-110)
[2024-03-05] MEDS ORDERED: DEXTROSE 50% SYRINGE 50 ML IVP PRN ×2 (13:30)
[2024-03-05] MEDS: HYDROcodone/APAP 7.5-325MG 1 EACH TAB PO PRN (13:36)
[2024-03-05] MEDS: HYDROmorphone 1 MG/ML 1 ML SYRINGE IVP PRN (15:00)
[2024-03-05 16:49] LABS: Glucose,Whole Blood 209 mg/dL (70-110)
[2024-03-05] MEDS: INSULIN ASPART (NovoLOG) 100 UNIT/ML VIAL SQ SCH (16:52)
[2024-03-05 21:14] LABS: Glucose,Whole Blood 215 mg/dL (70-110)
[2024-03-05] MEDS: METOPROLOL TARTRATE 50 MG TAB PO SCH (21:31)
[2024-03-05] MEDS: metFORMIN 850 MG TAB PO SCH (21:31)
[2024-03-05] MEDS: SENNOSIDES-DOCUSATE SODIUM 1 EACH TAB PO SCH (21:31)
[2024-03-05] MEDS: lisinopriL 20 MG TAB PO SCH (21:32)
[2024-03-05] MEDS: DOXAZOSIN 4 MG TAB PO SCH (21:32)
--- NOTE | 2024-03-06 03:12 | CONS ---
CONSULTATION REASON FOR CONSULTATION: Advice regarding multiple medical issues including diabetes mellitus type 2. HISTORY OF PRESENT ILLNESS: This is a 63-year-old gentleman with a past medical history of multiple medical problems including diabetes mellitus, hypertension, hyperlipidemia, underwent a left total hip joint arthroplasty. There is no history of any fever, or rigors. No history of headache, loss of consciousness, or seizures. Sugars were 159 and 187. PAST MEDICAL HISTORY: Diabetes mellitus, hypertension, hyperlipidemia. Rest of the history and rest of the chart is also reviewed. HOME MEDICATIONS: Reviewed include Glucophage. Dose and rest of medications reviewed. ALLERGIES: Reviewed include egg. FAMILY HISTORY: No history of heart disease or strokes in the family. SOCIAL HISTORY: No history of smoking or alcohol. REVIEW OF SYSTEMS: A 14-point review of systems is negative except as mentioned earlier. PHYSICAL EXAMINATION: VITAL SIGNS: Pulse 66, blood pressure 151/82, respirations 17. HEENT: Conjunctivae normal. NECK: No JVD. CARDIOVASCULAR: S1, S2. RESPIRATIONS: Breath sounds diminished at the bases. Scattered rhonchi. ABDOMEN: Soft, nontender. LEGS: Status post surgery. NERVOUS SYSTEM: Nonfocal. LABORATORY DATA: Accu-Cheks noted. ASSESSMENT: 1. Status post left hip arthroplasty. 2. Diabetes mellitus, type 2. 3. Hypertension. 4. Hyperlipidemia. 5. History of psoriatic arthritis. 6. History of Warthin's tumors of the parotid gland. RECOMMENDATIONS AND DISCUSSION: This is a 63-year-old gentleman, who presented with multiple complex medical issues, we will monitor the patient closely. Continue current medications. Resume the home medications. Monitor blood sugars closely. DVT prophylaxis. Symptomatic treatment. We will follow the patient closely with you. The patient may be asked to follow up with Primary Physician in the outpatient setting. MMODL / IJN: [id number] /
[2024-03-06 06:12] LABS: Glucose,Whole Blood 177 mg/dL (70-110)
[2024-03-06 07:54] VITALS: BP 133/72; PULSE 74; RESP 17; TEMP 97.5
[2024-03-06] MEDS: FOLIC ACID 1 MG TAB PO SCH (08:12)
[2024-03-06] MEDS: ATORVASTATIN 10 MG TAB PO SCH (08:13)
[2024-03-06] MEDS: CHOLECALCIFEROL 25 MCG (1000 IU) TABLET PO SCH (08:13)
[2024-03-06] MEDS: RIVAROXABAN 10 MG TAB PO SCH (08:13)
[2024-03-06] MEDS: FINASTERIDE 5 MG TAB PO SCH (08:13)
[2024-03-06 08:54] LABS: Basophils # (A) 0.01 X 10*3/uL (0.00-0.10); Basophils % (A) 0.1 %; Eosinophils # (A) 0.01 X 10*3/uL (0.04-0.35); Eosinophils % (A) 0.1 %; HGB 10.5 g/dL (13.0-17.0); Lymphocytes # (A) 1.14 X 10*3/uL (0.90-5.00); Lymphocytes % (A) 12.8 %; MCH 30.3 pg (27.0-32.0); MCHC 32.8 g/dL (32.0-37.0); MCV 92.5 FL (80.0-97.0); Mean Platelet Volume 9.5 FL (9.5-12.2); Monocytes # (A) 0.86 X 10*3/uL (0.20-1.00); Monocytes % (A) 9.6 %; NRBC Per 100 WBC 0 X 10*3/uL (0.00-0.01); Neutrophils # (A) 6.87 X 10*3/uL (1.80-7.70); Platelet Count 166 X 10*3/uL (140-440); RBC 3.46 X 10*6/uL (4.40-5.60); RDW 13.2 % (11.5-14.5); WBC 8.93 X 10*3/uL (4.50-10.00)
--- NOTE | 2024-03-06 11:43 | P.DS ---
Providers Date of admission: 03/05/2024 Expected date of discharge: 03/06/24 Attending physician: Law Enriquez Consults: 03/05/24 09:21 Consult Physician Routine Consulting Provider: Braden Leahy Consult Reason/Comments: medical management s/p direct anterior left total hip arthroplasty Do you want consulting provider notified?: Yes Primary care physician: Denisse [facility] Hospital Course: Date of admission: 02/26/2024 Date of discharge: 03/06/2024 Admission diagnosis: Left hip osteoarthritis Discharge diagnosis: Same Attending physician: Dr. Enriquez Surgical procedures: Direct anterior left total hip arthroplasty Brief history: Patient is a 63-year-old male with a history of progressive primary left hip osteoarthritis. At this point patient has failed conservative treatment measures and has opted to proceed with a elective direct anterior left total hip arthroplasty. Hospital course: Details of patient's surgery can be found in operative report. Patient tolerated the procedure well and was subsequently transported to orthopedic floor. Patient's orthopeidc and medical care was provided daily. Patient had daily laboratory tests performed for evaluation of overall blood counts. Patient had daily physical therapy to include strengthening range of motion as well as education with walker ambulation. Patient was treated with Xarelto for their postoperative DVT prophylaxis during their inpatient stay. Patient was noted to have a relatively uneventful postoperative course. Patient reported satisfactory pain control with oral pain medications by postoperative day 1. Patient showed satisfactory progress with physical therapy. Patient moved steadily through the program and had no difficulty meeting the goals by postoperative day 1. Given patient's otherwise satisfactory course and having met physical therapy goals, plan is to discharge patient home with health services on postoperative day 1. Discharge condition/disposition: Patient will be discharged home with health services in stable condition. Discharge medications: Instructions are given on resumption of patient's normal daily medications per primary care recommendation, in addition patient will be prescribed [place] 7.5 mg / 325 mg 12 every 6 hours; Eliquis 2.5 mg twice daily x 2 weeks; senna. Discharge instructions: 1. Wound care and infection precautions, keep incision dry and covered while showering, no lotions, creams, moisturizers. No soaking, tubs, pools, hottubs. Do not scrub over the incision. 2. Weight-bear as tolerated with walker / cane until follow-up. 3. Ice and elevate when necessary. Do not exceed 20 minutes per hour with ice pack. 4. Utilize compression sleeve until seen at first follow up appointment. 5. Visiting nursing care. 6. Home physical therapy including home CPM. 7. Pain meds and anticoagulants per prescription. 8. Pain medication has potential to cause constipation. Increase oral fluid and fiber intake. Contact primary care provider if you have not had a bowel movement within 48 hours after discharge 9. No anti-inflammatory medication until discussed at first post operative visit, this including Motrin, Aleve, Mobic, Diclofenac. 10. Follow up in office at 2 weeks postop with Clint Holman PA-C / Benjamin May PA-C 11. Follow up with your primary care doctor 7-10 days after discharge. 12. Contact [facility] with any questions, . Assessment: Left hip osteoarthritis Procedures: Direct anterior left total hip arthroplasty Patient Condition at Discharge: Good Plan - Discharge Summary Discharge Rx Participant: Yes New Discharge Prescriptions: New Apixaban [Eliquis] 2.5 mg PO BID #60 tab HYDROcodone/APAP 7.5-325MG [[place] 7.5] 1 - 2 each PO Q6HR PRN #32 tab PRN Reason: Pain Sennosides/Docusate Sodium [[place]enna Plus 8.6-50 mg Softgel] 1 each PO DAILY #20 capsule No Action HYDROcodone/APAP 5-325MG [[place] 5-325] 1 tab PO Q6HR PRN PRN Reason: Pain Terazosin HCl [Hytrin] 10 mg PO HS Rosuvastatin Calcium [Crestor] 5 mg PO DAILY Finasteride [Proscar] 5 mg PO DAILY lisinopriL [Zestril] 20 mg PO BID Cholecalciferol [Vitamin D3 (25 Mcg = 1000 Iu)] 25 mcg PO DAILY metFORMIN HCL [Glucophage] 850 mg PO BID Vitamin B-Folic Acid 1 tab PO DAILY Metoprolol Tartrate [Lopressor] 100 mg PO BID Tofacitinib Citrate [Xeljanz Xr] 11 mg PO DAILY Discharge Medication List Cholecalciferol [Vitamin D3 (25 Mcg = 1000 Iu)] 25 mcg PO DAILY 03/01/24 [History] Finasteride [Proscar] 5 mg PO DAILY 03/01/24 [History] HYDROcodone/APAP 5-325MG [[place] 5-325] 1 tab PO Q6HR PRN 03/01/24 [History] Metoprolol Tartrate [Lopressor] 100 mg PO BID 03/01/24 [History] Rosuvastatin Calcium [Crestor] 5 mg PO DAILY 03/01/24 [History] Terazosin HCl [Hytrin] 10 mg PO HS 03/01/24 [History] Tofacitinib Citrate [Xeljanz Xr] 11 mg PO DAILY 03/01/24 [History] Vitamin B-Folic Acid 1 tab PO DAILY 03/01/24 [History] lisinopriL [Zestril] 20 mg PO BID 03/01/24 [History] metFORMIN HCL [Glucophage] 850 mg PO BID 03/01/24 [History] Apixaban [Eliquis] 2.5 mg PO BID #60 tab 03/06/24 [Rx] HYDROcodone/APAP 7.5-325MG [[place] 7.5] 1 - 2 each PO Q6HR PRN #32 tab 03/06/24 [Rx] Sennosides/Docusate Sodium [Senna Plus 8.6-50 mg Softgel] 1 each PO DAILY #20 capsule 03/06/24 [Rx] Follow up Appointment(s)/Referral(s): Benjamin May PAC [PHYSICIAN INNER TUBE CUTTER] - 2 Weeks [facility] Visiting Nurse, [NON-STAFF] - 1-2 Days ([facility] will call you to schedule your in home physical therapy and nursing visits. ) Patient Instructions/Handouts: Anterior Hip Replacement (GEN) Activity/Diet/Wound Care/Special Instructions: Orthopedic Discharge Instructions: 1. Wound care and infection precautions, keep incision dry and covered while showering, no lotions, creams, moisturizers. No soaking, pools, hot tubs. Do not scrub over incision. 2. Weight-bear as tolerated with walker / cane until follow-up. 3. Ice and elevate when necessary. Do not exceed 20 minutes per hour with ice pack. 4. Utilize compression sleeve until seen at first follow up appointment. 5. Pain meds and anticoagulants per prescription. 6. Pain medication has potential to cause constipation. Increase oral fluid and fiber intake. Contact primary care provider if you have not had a bowel movement within 48 hours after discharge. 7. No anti-inflammatory medication until discussed at first post operative visit, this including Motrin, Aleve, Mobic, Diclofenac. 8. Follow up in office at 2 weeks postop with Clnit Holman PA-C / Benjamin May PA-C 9. Follow up with your primary care doctor 7-10 days after discharge. 10. Contact [facility] with any questions, . Keep incision clean, dry, intact. While showering, cover fusion tape with Saran wrap. Keep fusion tape on until follow-up appointment in office in 2 weeks. Discharge Disposition: HOME WITH HOME HEALTH SERVICES
--- NOTE | 2024-03-06 11:46 | P.PN ---
Subjective Progress Note Date: 03/06/24 Principal diagnosis: Left hip osteoarthritis Patient was seen at bedside this morning lying the summer with dressing over left hip. Patient currently icing left hip. Patient says he did work with therapy this morning and walked down the hallway and up and down steps . Patient says he does have a walker for home. Patient says pain is well- controlled with oral medication. Patient states he has been urinating since surgery without issue. No bowel movement yet, however, patient states he has been passing gas. Patient denies any other issues at this time. Objective - Vital Signs Vital signs: Vital Signs Temp 97.5 F L 03/06/24 07:54 Pulse 74 03/06/24 07:54 Resp 17 03/06/24 07:54 BP 133/72 03/06/24 07:54 Pulse Ox 98 03/06/24 07:54 FiO2 Intake & Output 03/05/24 03/06/24 03/06/24 18:59 06:59 18:59 Intake Total 1151 Output Total 700 200 Balance 451 -200 Weight 131.4 kg Intake: IV 1151 Output: Urine 200 Estimated Blood Loss 700 Other: Voiding Method Toilet Urinal # Voids 1 1 - Exam Left hip: Incision is clean, dry, and intact. The bulky dressing is in good condition. There is minimal soft tissue swelling and ecchymosis surrounding the medial and lateral aspects of the incision. Calf is soft, no tenderness with palpation. Plantar flexion, dorsiflexion, EHL, FHL are intact. Sensory exam to light touch throughout the extremity is intact, dorsal pedis pulses 2+. - Labs CBC & Chem 7: 03/06/24 03:20 Labs: Abnormal Lab Results - Last 24 Hours (Table) 03/05/24 03/05/24 03/06/24 Range/Units 16:48 21:12 03:20 RBC 3.46 L (4.40-5.60) X 10*6/uL Hgb 10.5 L (13.0-17.0) g/dL Hct 32.0 L (39.6-50.0) % Eosinophils # 0.01 L (0.04-0.35) X 10*3/uL POC Glucose (mg/dL) 209 H 215 H (70-110) mg/dL 03/06/24 Range/Units 06:11 RBC (4.40-5.60) X 10*6/uL Hgb (13.0-17.0) g/dL Hct (39.6-50.0) % Eosinophils # (0.04-0.35) X 10*3/uL POC Glucose (mg/dL) 177 H (70-110) mg/dL Assessment and Plan Assessment: 1. Left hip osteoarthritis -Postop day #1 status post direct anterior left total hip arthroplasty Plan: 1. Left hip osteoarthritis -direct anterior left total hip arthroplasty performed yesterday, 03/05/2024. Patient stable bedside this morning. Patient did do well with therapy this morning. Use walker as needed. Discharge home today with health services. 2. Appreciate medical management 3. Pain management -[place] 4. GI prophylaxis -senna 5. PT/OT -weightbearing as tolerated with walker 6. DVT prophylaxis -Xarelto in hospital. Going home with Eliquis 2.5 mg twice daily x 2 weeks 7. Encourage incentive spirometer use 8. Discharge planning -home today with health services. Time with Patient: Less than 30
[2024-03-06 11:50] LABS: Glucose,Whole Blood 135 mg/dL (70-110)
--- NOTE | 2024-03-06 23:06 | PN ---
PROGRESS NOTE DATE OF SERVICE: 03/06/2024 SUBJECTIVE: This is a 63-year-old gentleman, who was admitted after left hip arthroplasty, improving significantly. No chest pain. No palpitation. OBJECTIVE: VITAL SIGNS: Pulse is 74, blood pressure 130/70, respirations 17. CHEST: Clear to auscultation. CARDIOVASCULAR: S1, S2. ABDOMEN: Soft. LEGS: Status post surgery. LABORATORY DATA: Noted. ASSESSMENT: 1. Status post left hip arthroplasty. 2. Diabetes mellitus, type 2. 3. Hypertension. 4. Hyperlipidemia. RECOMMENDATIONS AND DISCUSSION: Recommend to continue current management and continue symptomatic treatment. Resume the home medications. Follow up with primary physician. Otherwise, rest of the recommendations and/or DVT prophylaxis per Orthopedic Surgery. Further recommendations to follow. MMODL / IJN: [id number] /
== END 2024-03-06 14:25 | disposition home health service (06) ==
LOC: OR 05:54 → 4SSUR 09:26 → OR 03-06 14:25
PROVIDERS: ATTEND Orthopaedic Surgery
DX: M16.12 Unilateral primary osteoarthritis, left hip (principal); E11.9 Type 2 diabetes mellitus without complications; E78.5 Hyperlipidemia, unspecified; G89.18 Other acute postprocedural pain; I10 Essential (primary) hypertension; Z79.01 Long term (current) use of anticoagulants; Z79.84 Long term (current) use of oral hypoglycemic drugs; Z88.1 Allergy status to other antibiotic agents; Z88.2 Allergy status to sulfonamides; Z98.890 Other specified postprocedural states; Z79.899 Other long term (current) drug therapy; Z87.898 Personal history of other specified conditions
CPT/HCPCS: 97161; 97166; 64999; 85025; 83036; 73501; 27130; C1776; S0138; J2250; J1100; J0690 ×2; J2405; J1171 ×3